=== PATIENT | female | born 1995 | race African-American/Black ===

== ENCOUNTER 2023-10-15 22:16 | Emergency (ER) | payer MEDICAID, OTHER ==
[~2023-10-15] VITALS: Ht 167.6 cm; Wt 62.0 kg
[2023-10-15] MEDS ORDERED: ONDANSETRON HCL 4MG/2ML INJ IV STA (22:22)
[2023-10-15] MEDS ORDERED: MAGNESIUM/ALUMINUM HYDROXIDE/SIMETHICONE 30ML UDC PO STA (22:22)
[2023-10-15] MEDS ORDERED: KETOROLAC 30MG/ML VIAL IV STA (22:22)
[2023-10-15] MEDS: SODIUM CHLORIDE 0.9% 1,000 ML IV ONE (22:30)
[2023-10-15 22:34] VITALS: BP 130/80; PULSE 46; RESP 18; TEMP 98.3; O2SAT 97
[2023-10-16] MEDS: MAGNESIUM/ALUMINUM HYDROXIDE/SIMETHICONE 30ML UDC PO NR (01:00)
[2023-10-16 01:18] LABS: BASOPHILS % 0.3 % (0.0-2.0); EOSINOPHILS % 1.3 % (0.0-5.0); HEMATOCRIT. 38.1 % (36.0-48.0); HEMOGLOBIN. 12.9 g/dL (12.0-16.0); LYMPHOCYTES % 31.9 % (20.0-50.0); MEAN CORPUSCULAR HEMOGLOBIN 29.8 pg (28.0-32.0); MEAN CORPUSCULAR HGB CONC 33.9 g/dL (31.0-37.0); MEAN CORPUSCULAR VOLUME 87.8 fL (81.0-99.0); MEAN PLATELET VOLUME 8.6 fl (7.4-10.4); MONOCYTES % 4.8 % (2.0-8.0); NEUTROPHILS % 61.7 % (40.0-76.0); PLATELET 252 x1000/uL (130-400); RED BLOOD CELL COUNT 4.34 mill/uL (4.2-5.4); RED CELL DISTRIBUTION WIDTH 15.1 % (11.6-14.6); WHITE BLOOD COUNT 8.5 x1000/uL (4.5-11.0)
[2023-10-16 01:25] LABS: CHLORIDE 108 mEq/L (98-107); POTASSIUM 3.4 mEq/L (3.5-5.1); SODIUM 140 mEq/L (136-145)
[2023-10-16 01:26] LABS: CALCIUM 9.7 mg/dL (8.7-10.4); CARBON DIOXIDE 29 mEq/L (21-32)
[2023-10-16 01:28] LABS: PROTHROMBIN TIME 11.3 sec (9.6-11.0)
[2023-10-16 01:31] LABS: CREATININE 0.8 mg/dL (0.6-1.0); GLUCOSE 91 mg/dL (70-105)
[2023-10-16 01:32] LABS: UREA NITROGEN BLOOD 10 mg/dL (9-23)
[2023-10-16 01:33] LABS: ALANINE AMINOTRANSFERASE 50 IU/L (10-49); ALBUMIN 4.9 g/dL (3.2-4.8); ASPARTATE AMINOTRANSFERASE 81 IU/L (<34); BILIRUBIN DIRECT 0.2 mg/dL (<=3.0)
[2023-10-16 01:34] LABS: BILIRUBIN TOTAL 0.5 mg/dL (0.1-1.0); PROTEIN TOTAL 7.5 g/dL (6.0-8.3)
[2023-10-16] MEDS: ONDANSETRON HCL 4MG/2ML INJ IV NR (01:38)
[2023-10-16] MEDS: KETOROLAC 30MG/ML VIAL IV NR (01:38)
[2023-10-16 01:41] LABS: HCG SCREEN NEGATIVE
[2023-10-16 01:46] LABS: ETHANOL BLOOD < 10 mg/dL (<10)
[2023-10-16] MEDS ORDERED: NAPR275T96 MT (02:24)
[2023-10-16] MEDS ORDERED: ONDA4TAB50 MT (02:24)
== END 2023-10-16 00:11 | disposition home or self-care (01) ==
LOC: ER 22:16
DX: K80.20 Calculus of gallbladder without cholecystitis without obstruction (principal)
CPT/HCPCS: 80076; 80048; 80320; 84703; 83690; 85025; 85610; 36415; 96361; 99285; 76705; 96374; 96375; J7030; J1885; J2405; G0480